=== PATIENT | female | born 1955 | race Caucasian/White ===

== ENCOUNTER → 2017-07-09 | Outpatient (CLI) | payer MEDICARE ==
[~2017-07-09] MED LIST: AMLODIPINE BES10 MG PO; GABAPENTIN 400400 MG PO; GABAPENTIN800 MG PO; HYDROCODONE-APA1 TA2 PO; LIDODERM1 EACH TP; NORCO1 TAB PO; PRILOSEC40 MG PO; SINGULAIR 10 MG10 MG PO; VENLAFAXINE100 MG PO; ZANAFLEX2 M1 PO; ZYRTEC ALLERGY10 MG PO
[2017-07-09 13:20] LABS: AMPHETAMINES/METAMPHETAMINES NEGATIVE ng/mL (<1000)
[2017-07-22 20:40] LABS: Codeine Negative (Cutoff=100); Hydrocodone Positive (.); Hydromorphone Negative (Cutoff=100); Morphine Negative (Cutoff=100); Opiates Positive (.)
== END ==
LOC: LAB 11:04
PROVIDERS: Anesthesiology
DX: Z79.899 Other long term (current) drug therapy (principal)